=== PATIENT | male | born 1980 | race Caucasian/White ===

== ENCOUNTER 2023-11-14 18:02 | Emergency (ER) | payer BC, SELFPAY ==
[2023-11-14 18:15] VITALS: BP 131/97
[2023-11-14] MEDS: RABAVERT RABIES VACC W-DILUENT 2.5 UNIT IM (20:31)
[2023-11-14] MEDS: HyperRAB 1982 UNIT IM (20:32)
--- NOTE | 2023-11-14 20:34 | ED.GENMED ---
History of Present Illness
General
Chief Complaint: Rabies
Source: patient
Exam Limitations: none
Time Seen by Provider: 11/14/23 19:10
Nursing documentation reviewed up to this point in time: agreed with
History of Present Illness
History of Present Illness:
43-year-old male with history as documented presents for evaluation for rabies prophylaxis. Last night patient awoke to a in bedroom. No bite noted. Able to monica the bat outside. Referred to the ER for rabies prophylaxis. No physical
complaints noted. No prior history of rabies vaccination.
Review of Systems
Review of Systems
All Other Systems: ROS reviewed and negative except as documented in HPI and ROS
Skin: Reports other (Denies any bites)
Phy Exam
Physical Exam
Physical Exam:
General: Well appearing and non-toxic
HEENT: protecting airway
Neck: appears supple
CV: No evidence of cyanosis
Resp: No accessory muscle use
Abd: Non-distended
Extremities: No deformities
Neuro: Alert
Psych: Normal affect
Skin: Intact
Scores
Heart Failure Risk
Heart Failure Risk Score: Not Applicable
Heart Score for Chest Pain Patients
STEMI patient?: Not applicable
Withdrawal Assessment of Alcohol
Withdrawal Assessment Completed?: Not applicable
Course
Orders/Labs/Results
Orders:
Orders
11/14/23 19:45
Rabies Immune Globulin/Pf [HyperRAB] 1,982 unit IM NOW STA
Rabies Vaccine (Pcec)/Pf [Rabavert Rabies Vacc W-Diluent] 2.5 unit IM .ONCE ONE
Vital Signs
Initial and Last Documented VS:
Initial Vital Signs
Temp Pulse Resp BP Pulse Ox
36.7 C 85 19 131/97 98
11/14/23 18:15 11/14/23 18:15 11/14/23 18:15 11/14/23 18:15 08/22/24 18:15
Last Documented Vital Signs
Temp Pulse Resp BP Pulse Ox
36.7 C 85 19 131/97 98
11/14/23 18:15 11/14/23 18:15 11/14/23 18:15 11/14/23 18:15 11/14/23 18:15
MDM/Problems Addressed
Differential Diagnosis Includes:
Possible rabies exposure
MDM/Problems Addressed:
43-year-old male presents after possible rabies exposure�woke with bat in the room. No bite noted. No physical complaints. No prior history of rabies vaccination. Will provide rabies immunoglobulin and vaccination here, discussed follow-up plan
and need for additional steps of rabies series. All questions answered.
*Pulse Oximetry
Patient hypoxic: no
*Critical Care Note
Total Time (30-74mins, 75-104mins- exclusive of procedures): Not Applicable
Data Reviewed
Source: patient
ED Attending Note
-
Portions of this chart may have been created with voice recognition software.� Occasional wrong word or��sound alike� substitutions may have occurred due to the inherent limitations of voice recognition software.
Discharge Plan
Departure
Patient Disposition: Home (Routine Discharge)
Date of Disposition: 11/14/23
Time of Disposition: 19:46
Patient with high blood pressure during this ER visit?: No
Discharge Problem:
Rabies, need for prophylactic vaccination against
Instructions: Rabies
Prescriptions:
New
RabAvert (PF) 2.5 unit Suspension For Reconstitution
1 ml IM . DIRECTED Qty: 3 0RF
Rx Instructions:
See Rabies Vaccine Post Exposure Prophylaxis Instruction Sheet for Dosing Instructions
Stand Alone Forms: Rabies Vaccine Post Exp Dosing
Activity Restrictions/Additional Instructions:
Thank you for visiting the Emergency Department at [facility].
1. Please schedule a follow up appointment as directed. Call first thing tomorrow morning to make an appointment.
2. If indicated, please take your medications as instructed and indicated on discharge paperwork.
3. If any of your symptoms do not improve, or persist, or become more severe within 6-12 hours, please return to the emergency department for further care.
4. Please return to the emergency department if you develop a headache, neck pain/stiffness, fever greater than 100.4F, chest pain, shortness of breath, persistent nausea, vomiting, slurred speech, difficulty walking, numbness/tingling, weakness,
signs of infection or any other symptoms that are worrisome to you.
Please call [phone] if you have any questions.
Discharge Date and Time
Print Language: [place]
[2023-11-14 21:12] VITALS: BP 130/87
== END 2023-11-14 21:13 | disposition home or self-care (01) ==
LOC: EMR 18:02
PROVIDERS: EMERGENCY PHYSICIAN Emergency Medicine
DX: Z20.3 Contact with and (suspected) exposure to rabies (principal); Z23 Encounter for immunization; Z88.2 Allergy status to sulfonamides
CPT/HCPCS: 99284; 90471; 96372; 90375; 90675

== ENCOUNTER 2023-11-17 09:38 | Emergency (ER) | payer BC, SELFPAY ==
[2023-11-17 09:44] VITALS: BP 133/80
[2023-11-17 09:56] VITALS: BMI 45.5
--- NOTE | 2023-11-17 10:06 | ED.GENMED ---
History of Present Illness
General
Chief Complaint: Rabies
Source: patient and spouse
Exam Limitations: none
Time Seen by Provider: 11/17/23 09:47
Nursing documentation reviewed up to this point in time: agreed with
History of Present Illness
History of Present Illness:
43-year-old male presenting to the emergency department for subsequent rabies vaccination. Had exposure a few days ago received the immunoglobulin and vaccine at that point. Today is day 3 requiring second dose no additional concerns
Review of Systems
Review of Systems
Allergies reviewed?: Yes
All Other Systems: ROS reviewed and negative except as documented in HPI and ROS
Phy Exam
Physical Exam
Physical Exam:
GENERAL: Alert , in no apparent distress
EYE: pupils equal and reactive
NECK: Supple, no significant adenopathy.
ENT: o/p clr, mmm.
NEUROLOGICAL: Alert and oriented, no focal neuro deficits
SKIN: Warm and dry, skin intact.
MUSCULOSKELETAL: No edema, well perfused.
PSYCH: Normal and appropriate interaction.
Course
Orders/Labs/Results
Orders:
Orders
11/17/23 10:15
Rabies Vaccine (Pcec)/Pf [Rabavert Rabies Vacc W-Diluent] 2.5 unit IM .ONCE ONE
Vital Signs
Initial and Last Documented VS:
Initial Vital Signs
Temp Pulse Resp BP Pulse Ox
98.1 F 82 18 133/80 97
11/17/23 09:44 11/17/23 09:44 11/17/23 09:44 11/17/23 09:44 11/17/23 09:44
Last Documented Vital Signs
Temp Pulse Resp BP Pulse Ox
98.1 F 78 18 131/70 98
11/17/23 09:44 11/17/23 10:45 11/17/23 10:45 11/17/23 10:45 11/17/23 10:45
MDM/Problems Addressed
MDM/Problems Addressed:
Patient presenting today for second rabies vaccination no additional concerns no side effects from initial vaccination or immunoglobulin. Stable for discharge.
*Critical Care Note
Total Time (30-74mins, 75-104mins- exclusive of procedures): Not Applicable
ED Attending Note
-
Portions of this chart may have been created with voice recognition software.� Occasional wrong word or��sound alike� substitutions may have occurred due to the inherent limitations of voice recognition software.
Discharge Plan
Departure
Patient Disposition: Home (Routine Discharge)
Date of Disposition: 11/17/23
Time of Disposition: 10:11
Patient with high blood pressure during this ER visit?: No
Condition: Good
Covid-19: Not Applicable
Discharge Problem:
Exposure to bat without known bite
Instructions: Rabies
Prescriptions:
No Action
RabAvert (PF) 2.5 unit Suspension For Reconstitution
1 ml IM . DIRECTED Qty: 3 0RF
Rx Instructions:
See Rabies Vaccine Post Exposure Prophylaxis Instruction Sheet for Dosing Instructions
Referrals:
[facility] [Other]
Stand Alone Forms: Rabies Vaccine Post Exp Dosing
Interventions
Interventions:
*Risk Screen - Suicide Last Done: 11/17/23 10:45
*General Assessment Last Done: 11/17/23 10:45
*Neglect/Abuse Screening Last Done: 11/17/23 10:45
ED- Fall Risk Assessment Last Done: 11/17/23 10:45
*ED COVID-19 Vaccine History Last Done: 11/17/23 10:45
*Nursing Disposition Last Done: 11/17/23 10:45
Discharge Date and Time
Discharge Date/Time: 11/17/23 10:47
Print Language: [place]
[2023-11-17] MEDS: RABAVERT RABIES VACC W-DILUENT 2.5 UNIT IM (10:31)
[2023-11-17 10:45] VITALS: BP 131/70
== END 2023-11-17 10:47 | disposition home or self-care (01) ==
LOC: EMR 09:38
PROVIDERS: EMERGENCY PHYSICIAN Student in an Organized Health Care Education/Training Program
DX: Z20.3 Contact with and (suspected) exposure to rabies (principal); Z23 Encounter for immunization
CPT/HCPCS: 99281; 90471; 90675

== ENCOUNTER 2023-11-21 13:56 | Outpatient (RCR) | payer BC, SELFPAY ==
[2023-11-21 14:23] VITALS: BP 126/92
[2023-11-21] MEDS: RABAVERT RABIES VACC W-DILUENT 2.5 UNIT IM (14:30)
== END 2023-11-21 15:45 | disposition home or self-care (01) ==
LOC: OID 13:56
PROVIDERS: ATTENDING PHYSICIAN Emergency Medicine
DX: Z23 Encounter for immunization (principal); Z20.3 Contact with and (suspected) exposure to rabies
CPT/HCPCS: 90471; 90675

== ENCOUNTER 2023-11-28 13:58 | Outpatient (RCR) | payer BC, SELFPAY ==
[2023-11-28] MEDS: RABAVERT RABIES VACC W-DILUENT 2.5 UNIT IM (14:16)
== END 2023-11-29 10:38 | disposition home or self-care (01) ==
LOC: OID 13:58
PROVIDERS: ATTENDING PHYSICIAN Emergency Medicine
DX: Z20.3 Contact with and (suspected) exposure to rabies (principal); Z23 Encounter for immunization
CPT/HCPCS: 90471; 90675